=== PATIENT | male | born 1955 | race Caucasian/White ===

== ENCOUNTER → 2019-01-01 | Outpatient (CLI) | payer BC ==
[2019-01-01 13:14] LABS: Partial Thromboplastin Time 24.9 sec (22.0-30.0); Prothrombin Time 10.5 sec (9.0-12.0)
[2019-01-01 13:18] LABS: HCT 45.6 % (39.0-53.0); HGB 14.9 gm/dL (13.0-17.5); MCH 29.6 pg (25.0-35.0); MCHC 32.6 g/dL (31.0-37.0); MCV 90.9 fL (80.0-100.0); Mean Platelet Volume 7.5; Platelet Count 195 k/uL (150-450); RBC 5.02 m/uL (4.30-5.90); RDW 14.4 % (11.5-15.5); WBC 7.8 k/uL (3.8-10.6)
[2019-01-01 18:27] LABS: Albumin 4.5 g/dL (3.80-4.90); Albumin/Globulin Ratio 2.14 (1.60-3.17); Anion Gap 4.5 mmol/L (4.00-12.00); Calcium 9.5 mg/dL (8.7-10.3); Carbon Dioxide 27.5 mmol/L (21.6-31.8); Globulin 2.1 g/dL (1.6-3.3); Potassium 4.2 mmol/L (3.5-5.5); Total Bilirubin 0.6 mg/dL (0.3-1.2); Total Protein 6.6 g/dL (6.2-8.2)
== END | disposition home or self-care (01) ==
LOC: LABWHC1 11:57
PROVIDERS: ATTEND Family Medicine
DX: Z01.812 Encounter for preprocedural laboratory examination (principal); N28.89 Other specified disorders of kidney and ureter
CPT/HCPCS: 36415; 80053; 85027; 85610; 85730

== ENCOUNTER → 2020-01-02 | Outpatient (CLI) | payer MEDICARE ==
--- NOTE | 2020-01-03 08:00 | MR ---
EXAMINATION TYPE: MR brain wo/w con DATE OF EXAM: 01/02/2020 COMPARISON: None HISTORY: Renal Cell Carcinoma CONTRAST: Performed utilizing 8.5 mL intravenous Gadavist gadolinium contrast. TECHNIQUE: Multiplanar, multiecho imaging on a 3.0 Chanelle magnet is performed through the brain. Stud y is performed within 24 hours of arrival to the hospital. The craniovertebral junction is normal. The pituitary is normal. Diffusion-weighted imaging is performed. No abnormal hyperintensity is present to suggest an acute i ntracranial infarct or acute ischemic change. There are couple of subcortical white matter changes within the frontal lobes and left cortex, not ou t of portion patient age. Findings are nonspecific. Migraine headaches, microvascular ischemic change , vasculitis are among the differential . Ventricles and sulci are appropriate for the patient age. No abnormal enhancement is evident. No suspicious masses or enhancing lesions are identified. IMPRESSIONS: 1. Few scattered nonspecific white matter changes. 2. No suspicious changes to suggest metastatic disease.
== END | disposition home or self-care (01) ==
LOC: RADMRIMAIN 15:01
PROVIDERS: ATTEND Internal Medicine Hematology & Oncology
DX: C64.1 Malignant neoplasm of right kidney, except renal pelvis (principal); R90.82 White matter disease, unspecified
CPT/HCPCS: 70553; A9585

== ENCOUNTER → 2020-03-31 | Outpatient (CLI) | payer MEDICARE ==
--- NOTE | 2020-04-01 11:49 | MR ---
EXAMINATION TYPE: MR abdomen wo/w con DATE OF EXAM: 03/31/2020 COMPARISON: None. HISTORY: Renal cell ca status post right nephrectomy. CONTRAST: Standard multiplanar, multisequence MRI departmental protocol utilizing 8.5 mL intravenous Gadavist g adolinium contrast. Imaging is performed of the abdomen focusing on the kidneys. FINDINGS: Kidneys: Right kidney noted surgically absent. There is small bowel loop filling the right nephrectom y bed. No suspicious recurrent soft tissue noted. Left kidney is normal in size. There is no concerni ng solid or cystic mass identified. No left-sided hydronephrosis is seen. Prominent left-sided retro peritoneal fat with mass effect in the left mid to lower abdomen is noted displacing bowel loops. Other: Lung bases are grossly clear. Liver shows occasional tiny subcentimeter thin-walled cysts thro ughout the left hepatic lobe and inferior right hepatic lobe. Patent nondilated portal vein. Suspicio us solid mass. Gallbladder is contracted. No biliary dilatation. The spleen and pancreas are unremark able. Both adrenal glands are present and felt within normal limits. There is no suspicious small or large bowel dilatation. No AAA is seen. No abdominal ascites. No suspicious greater than 1 cm abdomin al adenopathy. Visualized osseous structures are intact. IMPRESSION: No suspicious new mass or adenopathy to suggest neoplastic recurrence. If Outside MRI and/or report become available an addendum may be issued.
== END | disposition home or self-care (01) ==
LOC: RADMRIMAIN 08:54
PROVIDERS: ATTEND Internal Medicine Hematology & Oncology
DX: C64.1 Malignant neoplasm of right kidney, except renal pelvis (principal)
CPT/HCPCS: 74183; A9585

== ENCOUNTER → 2020-04-01 | Outpatient (CLI) | payer MEDICARE ==
--- NOTE | 2020-04-02 17:17 | MR ---
EXAM: MAGNETIC RESONANCE IMAGING OF THE PELVIS WITH AND WITHOUT IV CONTRAST CLINICAL HISTORY: CANCER C64.1. Renal cell carcinoma status post right nephrectomy. COMPARISON: None. Correlative study includes MRI abdomen 03/31/2020 TECHNIQUE: Multi sequential multiplanar MRI images of the pelvis obtained without and with administr ation of 8.5 mL of intravenous Gadavist contrast. FINDINGS: There is motion artifact of the mid anterior visualized abdomen, without discrete visualization of kn own peritoneal nodularity in the region. No peritoneal nodularity, mass, free fluid, or lymphadenopat hy is seen within the pelvis. The urinary bladder is normal. Mild prostamegaly. The visualized bowel is nonobstructed with colonic diverticulosis. There is diffusely heterogenous bone marrow. IMPRESSIONS 1. No evidence of metastatic renal cell carcinoma of the pelvis. 2. Diffusely heterogenous bone marrow is nonspecific.
== END | disposition home or self-care (01) ==
LOC: RADMRIMAIN 09:00
PROVIDERS: ATTEND Internal Medicine Hematology & Oncology
DX: C64.1 Malignant neoplasm of right kidney, except renal pelvis (principal)
CPT/HCPCS: 72197; A9585

== ENCOUNTER → 2020-06-24 | Outpatient (CLI) | payer MEDICARE ==
--- NOTE | 2020-06-24 15:46 | MR ---
EXAMINATION TYPE: MR abdomen wo/w con DATE OF EXAM: 06/24/2020 COMPARISON: 03/31/2020 HISTORY: Renal cell CONTRAST: Standard multiplanar, multisequence MRI departmental protocol utilizing 8.5 ml mL intravenous Gadavis t gadolinium contrast. FINDINGS: Previously noted local recurrence with mass posterior to the right adrenal gland which measured 3 x 2 cm on an outside study from [facility] and subsequently measured 8 x 6 mm on 03/31/2020 i s not visualized on today's examination. No new masses are seen at this time. There are changes of th e right-sided nephrectomy with renal fossa appearing unremarkable. The left kidney excretes contrast normally. There is no evidence for left renal mass or hydronephrosi s. No nephrolithiasis seen. No evidence for regional adenopathy. Adrenal glands are symmetric and unremarkable. No hepatic lesions are seen. Gallbladder is unremarkable. Pancreas and spleen are within normal limit s. IMPRESSION: No evidence for recurrent or residual mass adjacent to or arising from the right renal fossa.
== END | disposition home or self-care (01) ==
LOC: RADMRIMAIN 12:36
PROVIDERS: ATTEND Internal Medicine Hematology & Oncology
DX: C64.1 Malignant neoplasm of right kidney, except renal pelvis (principal)
CPT/HCPCS: 74183; A9585

== ENCOUNTER → 2020-06-25 | Outpatient (CLI) | payer MEDICARE ==
--- NOTE | 2020-06-25 07:51 | CT ---
EXAMINATION TYPE: CT chest wo con DATE OF EXAM: 06/25/2020 COMPARISON: CT chest 02/26/2010. HISTORY: Renal cell cancer. CT DLP: 332.4 mGycm. Automated Exposure Control for Dose Reduction was Utilized. TECHNIQUE: CT scan of the thorax is performed without IV contrast. FINDINGS: LUNGS: There is peripheral 6 x 4 mm right lower lobe 42 new from 2010 study. No additional new greate r than 4 mm nodules or masses identified. Mild Linear scarring lateral lung bases unchanged from prio r. No pleural effusion or pneumothorax. MEDIASTINUM: Lack of IV contrast is noted to limit evaluation for mediastinal and especially hilar ad enopathy. There are no definitive greater than 1 cm hilar or mediastinal lymph nodes. No cardiomega ly or pericardial effusion is seen. Ascending aorta measures up to 3.7 cm in diameter axial image 26. Mild to moderate coronary artery calcification is redemonstrated. OTHER: There is partial visualization of right-sided nephrectomy changes.. IMPRESSION: Nonspecific 6 x 4 mm right lower lobe peripheral nodule from 2010 study needs to be follo wed.
== END | disposition home or self-care (01) ==
LOC: RADCTMAIN 07:15
PROVIDERS: ATTEND Internal Medicine Hematology & Oncology
DX: R91.1 Solitary pulmonary nodule (principal); C64.1 Malignant neoplasm of right kidney, except renal pelvis
CPT/HCPCS: 71250

== ENCOUNTER → 2020-06-27 | Outpatient (CLI) | payer MEDICARE ==
--- NOTE | 2020-06-27 19:21 | MR ---
EXAMINATION TYPE: MR brain wo/w con DATE OF EXAM: 06/27/2020 COMPARISON: MRI brain January 02, 2020. HISTORY: Stage 4 renal cell carcinoma TECHNIQUE: Multiplanar, multisequence images of the brain and brainstem is performed without and with IV contras t, utilizing 7.5 mL intravenous Gadavist . FINDINGS: Diffusion weighted images demonstrate no evidence of a recent infarct or other diffusion ab normality. There is no worrisome extra-axial fluid collection. The ventricular system and cisternal spaces are normal in size and appearance. The brain volume is age appropriate. Few small scattered foci of T2 hyperintensity throughout the white matter bilaterally. Roughly 5-10 scattered lesions. Le sions nonspecific in appearance and distribution. Midline structures demonstrates somewhat empty sella morphology. The craniocervical junction appears within normal limits. Post contrast images demonstrate no abnormal enhancement. The dural venous si nuses appear patent. The visualized sinuses are clear and the globes are intact. IMPRESSION: Mild nonspecific white matter changes presumed on the basis of product of chronic small v essel ischemic change in patient of this age. No enhancing lesions are evident to suggest metastatic disease to the brain. No significant change from prior.
== END | disposition home or self-care (01) ==
LOC: RADMRIMAIN 16:53
PROVIDERS: ATTEND Internal Medicine Hematology & Oncology
DX: C64.1 Malignant neoplasm of right kidney, except renal pelvis (principal); R90.89 Other abnormal findings on diagnostic imaging of central nervous system
CPT/HCPCS: 70553; A9585

== ENCOUNTER → 2021-01-26 | Outpatient (CLI) | payer MEDICARE, BC ==
--- NOTE | 2021-01-26 13:42 | CT ---
EXAMINATION TYPE: CT chest wo con DATE OF EXAM: 01/26/2021 COMPARISON: 06/25/2020 HISTORY: 65-year-old male C64.11, renal cell carcinoma, Malignant neoplasm right kidney, stage IV TECHNIQUE: Contiguous axial scanning of the chest without IV contrast. Coronal and sagittal reconstru ctions performed. CT DLP: 565 mGycm Automated exposure control for dose reduction was used. FINDINGS: Heart normal size without pericardial effusion. Mild LAD coronary artery calcifications are present. Ascending aorta ectatic and 3.7 cm. Ectatic upper descending thoracic aorta at 3.5 cm. Conventional a [facility] vessel branching anatomy. 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 No thoracic lymphadenopathy by CT size criteria. Minimal biapical pleural parenchymal scarring. Minimal scattered strandy areas of atelectasis. No con solidation or pleural effusion. 6 mm peripheral right lower lobe pulmonary nodule, axial image 39 is unchanged for 7 months. An addit ional one-year follow-up can be performed. Visualized upper abdomen shows right nephrectomy changes with some of the duodenum extending into the nephrectomy bed. Mild anterior endplate spondylosis. No osseous structure process seen. IMPRESSION: THE 6 MM RIGHT LOWER LOBE PULMONARY NODULE IS STABLE FOR 7 MONTHS. AN ADDITIONAL ONE-YEAR FOLLOW-UP C AN BE PERFORMED. PARTIALLY VISUALIZED POST SURGICAL CHANGE OF PRIOR RIGHT NEPHRECTOMY.
== END | disposition home or self-care (01) ==
LOC: RADCTMAIN 09:30
PROVIDERS: ATTEND Internal Medicine Hematology & Oncology
DX: C64.1 Malignant neoplasm of right kidney, except renal pelvis (principal); Z90.5 Acquired absence of kidney; R91.1 Solitary pulmonary nodule
CPT/HCPCS: 71250

== ENCOUNTER → 2021-01-27 | Outpatient (CLI) | payer MEDICARE, BC ==
--- NOTE | 2021-01-28 01:33 | MR ---
EXAMINATION TYPE: MR abdomen wo/w con DATE OF EXAM: 01/27/2021 COMPARISON: 06/24/2020 HISTORY: renal cell CA hx, Right kidney removed. CONTRAST: Standard multiplanar, multisequence MRI departmental protocol utilizing 10 mL intravenous Gadavist ga dolinium contrast. There is right nephrectomy. Left kidney has normal size and contour with no hydronephrosis. There is no sign of adrenal mass. Liver shows no focal defect. The bile ducts are not dilated. Spleen is intac t. Stomach is intact. There is no sign of pancreatic mass. Pancreatic duct appears normal. There is n o ascites. I see no evidence of retroperitoneal adenopathy. There is no sign of a bowel obstruction. There is 5 mm cyst in the left lobe of the liver. There is no sign of pleural effusion. Contrast imag es show normal enhancement of the portal venous system. There is normal enhancement of the left renal vein and inferior vena cava. There is no pathologic enhancement. IMPRESSION: Right nephrectomy. No evidence of recurrent tumor. No significant change compared to old exam. No sig n of metastatic disease.
== END | disposition home or self-care (01) ==
LOC: RADMRIMAIN 11:33
PROVIDERS: ATTEND Internal Medicine Hematology & Oncology
DX: Z85.118 Personal history of other malignant neoplasm of bronchus and lung (principal); K76.89 Other specified diseases of liver
CPT/HCPCS: 74183; A9585

== ENCOUNTER → 2021-04-24 | Outpatient (CLI) | payer MEDICARE, BC ==
--- NOTE | 2021-04-24 09:35 | CT ---
EXAMINATION TYPE: CT chest wo con DATE OF EXAM: 04/24/2021 COMPARISON: CT chest January 26, 2021 and older studies HISTORY: Renal cell CA, observe for METS, prior abnormal CT CT DLP: 480.0 mGycm. Automated Exposure Control for Dose Reduction was Utilized. TECHNIQUE: CT scan of the thorax is performed without IV contrast. FINDINGS: LUNGS: There is stable peripheral 5 x 4 mm right lower lobe nodule axial image 43 current study from last 2 prior studies. No additional new greater than 4 mm nodules or masses identified. Mild bibasila r linear scarring and/or atelectasis unchanged from prior. No pleural effusion or pneumothorax seen b ilaterally. MEDIASTINUM: Lack of IV contrast is noted to limit evaluation for mediastinal and especially hilar ad enopathy. There are no definitive greater than 1 cm new mediastinal lymph nodes. No cardiomegaly or pericardial effusion is seen. Ascending aorta measures up to 3.8 cm in diameter current study axial image 29. Mild to moderate coronary artery calcification is redemonstrated. OTHER: Right-sided nephrectomy changes redemonstrated. Small degree of subareolar gynecomastia redemo nstrated. Slight scoliotic curvature with mild multilevel spurring redemonstrated. IMPRESSION: Stable small right lower lobe nodule presumed benign. No new or enlarging nodules identif ied to suggest metastatic disease to the lungs.
== END | disposition home or self-care (01) ==
LOC: RADCTMAIN 08:55
PROVIDERS: ATTEND Internal Medicine Hematology & Oncology
DX: C64.9 Malignant neoplasm of unspecified kidney, except renal pelvis (principal); R91.1 Solitary pulmonary nodule
CPT/HCPCS: 71250

== ENCOUNTER → 2021-04-24 | Outpatient (CLI) | payer MEDICARE, BC ==
--- NOTE | 2021-04-27 07:48 | MR ---
EXAMINATION TYPE: MR abdomen wo/w con DATE OF EXAM: 04/24/2021 COMPARISON: MRI abdomen January 27, 2021 and older studies. HISTORY: Known renal cell carcinoma. Follow up study. CONTRAST: Standard multiplanar, multisequence MRI departmental protocol images were obtained without contrast a nd with 9 mL intravenous Gadavist gadolinium contrast. Imaging performed of the abdomen focusing on the kidneys. FINDINGS: Kidneys: Right kidney is surgically absent. Stable small 8 x 6 mm nodular focus of enhancement appear s contiguous with the right adrenal gland along inferior anterior aspect Left kidney is within normal limits in size without concerning solid or cystic mass. Incidental subcentimeter benign thin-walled cysts centrally coronal image 19. Prominent left-sided retroperitoneal fat redemonstrated. Other: Lung bases remain grossly clear. Stable 5 mm benign-appearing thin-walled cyst left hepatic lo be. Gallbladder is contracted. No biliary dilatation. Spleen and both adrenal glands remain within no rmal limits. No suspicious small or large bowel dilatation. No intra-abdominal ascites. No greater t deluna 1 cm intra-abdominal adenopathy. Osseous structures are intact. Overlying anterior abdominal wall samantha tical scarring with small incisional hernia series 1601 image 9 noted. No new intraperitoneal deposits identified. IMPRESSION: No suspicious new masses identified to suggest recurrent metastatic neoplasm.
== END | disposition home or self-care (01) ==
LOC: RADMRIMAIN 12:36
PROVIDERS: ATTEND Internal Medicine Hematology & Oncology
DX: C64.9 Malignant neoplasm of unspecified kidney, except renal pelvis (principal)
CPT/HCPCS: 74183; A9585

== ENCOUNTER 2021-11-30 13:08 | Emergency (ER) | payer MEDICARE, BC ==
[2021-11-30 13:18] VITALS: RESP 18; TEMP 98.2
--- NOTE | 2021-11-30 13:49 | ED ---
General Adult HPI - General Chief complaint: Extremity Injury, Lower Stated complaint: Leg pain Time Seen by Provider: 11/30/21 13:30 Source: patient, RN notes reviewed, old records reviewed Mode of arrival: ambulatory Limitations: no limitations - History of Present Illness Initial comments: This is a 66-year-old male presents emergency department stating that he just drove back from [place] and got back today. Patient states he was in the car for 12 hours first canine a second and 6 today. Patient states yesterday started noticing some pain behind the knee And distal thigh. Patient states the calf is nontender and the leg is swollen. Patient denies any difficulty breathing or shortness of breath per patient denies any fever chills or cough per patient denies any chest pain. Patient denies any lightheadedness or dizziness. Patient's only complaint is the pain posteriorly or in the leg and hand swelling of the calf - Related Data Home Medications Medication Instructions Recorded Confirmed Levocetirizine Dihydrochloride 5 mg PO HS 11/30/21 11/30/21 [Xyzal] Losartan/Hydrochlorothiazide 1 tab PO DAILY 11/30/21 11/30/21 [Losartan-Hctz 100-12.5 mg Tab] Omeprazole 20 mg PO BID 11/30/21 11/30/21 Simvastatin 40 mg PO DAILY 11/30/21 11/30/21 Zolpidem Tartrate [Ambien Cr] 12.5 mg PO HS 11/30/21 11/30/21 Previous Rx's Medication Instructions Recorded Apixaban [Eliquis Starter Pack 5 - 10 mg PO DIRECTED 30 Days 11/30/21 (for VTE)] #1 each Allergies Allergy/AdvReac Type Severity Reaction Status Date / Time No Known Allergies Allergy Verified 11/30/21 14:33 Review of Systems ROS Statement: Those systems with pertinent positive or pertinent negative responses have been documented in the HPI. ROS Other: All systems not noted in ROS Statement are negative. Past Medical History Additional Past Medical History / Comment(s): right kidney removed History of Any Multi-Drug Resistant Organisms: None Reported Past Surgical History: No Surgical Hx Reported Past Psychological History: No Psychological Hx Reported Smoking Status: Never smoker Past Alcohol Use History: None Reported Past Drug Use History: None Reported General Exam - General Exam Comments Initial Comments: GENERAL: Patient is well-developed and well-nourished. Patient is nontoxic and well- hydrated and is in no acute distress. ENT: Neck has full range of motion without eliciting any pain. EYES: The sclera were anicteric and conjunctiva were pink and moist. Extraocular movements were intact and pupils were equal round and reactive to light. Eyelids were unremarkable. PULMONARY: Unlabored respirations. Good breath sounds bilaterally. No audible rales rhonchi or wheezing was noted. CARDIOVASCULAR: There is a regular rate and rhythm without any murmurs gallops or rubs. ABDOMEN: Soft and nontender with normal bowel sounds. SKIN: Skin is clear with no lesions or rashes and otherwise unremarkable. NEUROLOGIC: Patient is alert and oriented x3. Cranial nerves II through XII are grossly intact. Motor and sensory are also intact. Normal speech, volume and content. Symmetrical smile. MUSCULOSKELETAL: Normal extremities with adequate strength and full range of motion. Tender to palpation on the left leg is mildly swollen. LYMPHATICS: No significant lymphadenopathy is noted PSYCHIATRIC: Normal psychiatric evaluation. Limitations: no limitations Course Vital Signs 11/30/21 13:15 Temperature 98.2 F Pulse Rate 81 Respiratory 18 Rate Blood Pressure 143/89 O2 Sat by Pulse 98 Oximetry Medical Decision Making - Medical Decision Making Patient has a ultrasound of the left leg positive for DVT. Patient will be placed on eliquis. Disposition Clinical Impression: DVT (deep venous thrombosis) Disposition: HOME SELF-CARE Condition: Good Instructions (If sedation given, give patient instructions): Deep Vein Thrombosis (ED) Prescriptions: Apixaban [Eliquis Starter Pack (for VTE)] 5 - 10 mg PO DIRECTED 30 Days #1 each Is patient prescribed a controlled substance at d/c from ED?: No Referrals: Lj Smith MD [Primary Care Provider] - 1-2 days Time of Disposition: 14:55
--- NOTE | 2021-11-30 14:37 | US ---
EXAMINATION TYPE: US venous doppler duplex LE LT DATE OF EXAM: 11/30/2021 2:30 PM COMPARISON: NONE CLINICAL HISTORY: DVT. pain and edema left leg SIDE PERFORMED: left TECHNIQUE: The lower extremity deep venous system is examined utilizing real time linear array sonog tristan with graded compression, doppler sonography and color-flow sonography. VESSELS IMAGED: Common Femoral Vein Deep Femoral Vein Greater Saphenous Vein * Femoral Vein Popliteal Vein Small Saphenous Vein * Proximal Calf Veins (* superficial vessels) Left Leg: positive for DVT left femoral vein distal, left popliteal vein extending into proximal c mcc vein IMPRESSION: 1. Exam is positive for acute DVT left superficial femoral vein, left popliteal vein and extending in to the proximal calf veins.
[2021-11-30 15:15] VITALS: BP 134/78; PULSE 84
== END 2021-11-30 15:15 | disposition home or self-care (01) ==
LOC: EC 13:08
DX: I82.412 Acute embolism and thrombosis of left femoral vein (principal)
CPT/HCPCS: 99283

== ENCOUNTER → 2022-03-03 | Outpatient (CLI) | payer MEDICARE, BC ==
--- NOTE | 2022-03-03 16:02 | CT ---
EXAMINATION TYPE: CT chest wo con DATE OF EXAM: 03/03/2022 COMPARISON: 04/24/2021, 06/25/2020 HISTORY: H/O RENAL CA CT DLP: 533 mGycm, Automated exposure control for dose reduction was used. CONTRAST: None TECHNIQUE: Axial images were obtained at 5 mm thick sections. Reconstructed images are reviewed on [employer] computer in the coronal plane. FINDINGS: Portion of the thyroid visualized is normal. The 0.4 cm nodule in the periphery of the right lower lung field, series 4 image 45 remain stable. No enlarged mediastinal or hilar adenopathy is evident. The ascending aorta diameter at the level o f the main pulmonary artery is 4.1 cm. The main pulmonary artery diameter at the bifurcation is 2.4 cm. Minimal coronary artery calcifications present. Limited CT sections are obtained through the upper abdomen. There is a right nephrectomy. IMPRESSIONS: 1. No significant interval change. Stable subcentimeter nodule right lobe. Follow-up in 6 months is r ecommended to confirm stability over the course of 2 years.
--- NOTE | 2022-03-03 16:57 | MR ---
MR abdomen with and without contrast HISTORY: Renal cancer, C 64.1 Multiplanar multisequence and postcontrast images obtained to the abdomen following 9 cc Gadavist IV Correlation to prior MR abdomen 04/24/2021 Exam is stable. Scattered T2 bright foci within the liver are likely to represent cysts. No retroperi toneal adenopathy. Aorta shows normal caliber. Adrenal glands are stable. Umbilical hernia contains f at. There is no ascites. Patient is status post right nephrectomy. Left kidney shows a stable appearance. No abnormal enhancem ent. Pancreas is unchanged. Spleen is normal. Gallbladder shows no stone. No evident bowel obstructio n. Lung bases show no effusion. Visualized bone marrow signal is normal IMPRESSION: No evident recurrence.
== END | disposition home or self-care (01) ==
LOC: RADCTMAIN 11:17
PROVIDERS: ATTEND Internal Medicine Hematology & Oncology
DX: C64.1 Malignant neoplasm of right kidney, except renal pelvis (principal); R91.8 Other nonspecific abnormal finding of lung field
CPT/HCPCS: 71250; 74183; A9585

== ENCOUNTER → 2022-05-15 | Outpatient (CLI) | payer MEDICARE, BC ==
--- NOTE | 2022-05-16 15:09 | MR ---
EXAMINATION TYPE: MR shoulder LT wo con DATE OF EXAM: 05/15/2022 COMPARISON: None HISTORY: Left shoulder pain and limited range of motion TECHNIQUE: Multiplanar, multisequence imaging of the left shoulder is performed without contrast. FINDINGS: Rotator Cuff: There is some increased signal associated with the rotator cuff tendon, Acromioclavicular Joint: There is degenerative change at the acromioclavicular joint. Distal acromial spur is present. Glenohumeral Joint: Intact Labrum: The labrum appears grossly intact given limitation of non-arthrogram study. Biceps Tendon: The long head of biceps is in normal location within bicipital groove. Fluid is presen t along the long head of biceps tendon. Findings could be indicative of tenosynovitis. Bone marrow signal: Some small pseudocysts are present within the humeral head. Other: There is some fluid signal along the subscapularis musculotendinous junction. IMPRESSION: Findings may represent an intrasubstance tear of the supraspinatus tendon correlate for impingement. Acromioclavicular joint arthropathy.
== END | disposition home or self-care (01) ==
LOC: RADMRIMAIN 07:11
PROVIDERS: ATTEND Family Medicine
DX: M19.012 Primary osteoarthritis, left shoulder (principal)

== ENCOUNTER → 2022-12-08 | Outpatient (CLI) | payer MEDICARE, BC ==
--- NOTE | 2022-12-08 17:55 | CT ---
EXAMINATION TYPE: CT chest wo con DATE OF EXAM: 12/08/2022 COMPARISON: 03/03/2022 HISTORY: renal cell cancer CT DLP: 346.5 mGycm, Automated exposure control for dose reduction was used. CONTRAST: Performed injected with 0 mL of Isovue 300. TECHNIQUE: Axial images were obtained at 5 mm thick sections. Reconstructed images are reviewed on [employer] computer in the coronal plane. FINDINGS: Portion of the thyroid visualized is normal. No suspicious lung nodules or focal infiltrates are present. No enlarged mediastinal or hilar adenopathy is evident. The ascending aorta diameter at the level o f the main pulmonary artery is 3.9 cm. The main pulmonary artery diameter at the bifurcation is 2.3 cm. Mild coronary artery calcifications present. Limited CT sections are obtained through the upper abdomen. Small hiatal hernia may be present. Upper abdomen within the [id number] otherwise appears unremarkable. IMPRESSIONS: 1. No suspicious changes to suggest metastatic neoplasm.
== END | disposition home or self-care (01) ==
LOC: RADCTMAIN 12:52
PROVIDERS: ATTEND Internal Medicine Hematology & Oncology
DX: C64.1 Malignant neoplasm of right kidney, except renal pelvis (principal)
CPT/HCPCS: 71250

== ENCOUNTER → 2022-12-08 | Outpatient (CLI) | payer MEDICARE, BC ==
--- NOTE | 2022-12-10 10:55 | MR ---
EXAMINATION TYPE: MR abdomen wo/w con DATE OF EXAM: 12/08/2022 2:49 PM INDICATION: Patient age:Male; 67 years old; Reason for study: C64.1 Renal cell cancer. F/U renal cell cancer COMPARISON: MR abdomen most recent 03/03/2022 TECHNIQUE: Multiplanar multi-sequence imaging was performed without contrast. Post contrast imaging was performed. Post IV contrast subtraction images were also submitted for review. IV Contrast: 9 cc Gadavist FINDINGS: LOWER CHEST: No gross irregularity. ABDOMEN Liver: Signal dropout on in phase chemical shift imaging. Gallbladder and Bile ducts: Unremarkable. Pancreas: Unremarkable. Spleen: Signal dropout on in phase chemical shift imaging. Adrenal glands: Unremarkable. Kidneys: Surgically absent right kidney. There is no abnormal soft tissue in the surgical bed. The left kidney is without evidence of hydronephrosis or suspicious mass. Stomach and Bowel: Unremarkable as visualized. Peritoneum: No evidence of pneumoperitoneum or free fluid. Vasculature: Unremarkable. No aortic aneurysm. Musculoskeletal: The osseous structures appear intact. Lymph Nodes: No gross evidence for lymphadenopathy. Abdominal wall: Unremarkable. IMPRESSION: 1. No evidence of mass or lymphadenopathy to suggest recurrence. 2. Evidence of iron deposition within the liver and spleen.
== END | disposition home or self-care (01) ==
LOC: RADMRIMAIN 12:49
PROVIDERS: ATTEND Internal Medicine Hematology & Oncology
DX: C64.1 Malignant neoplasm of right kidney, except renal pelvis (principal)
CPT/HCPCS: 74183; A9585

== ENCOUNTER 2023-01-15 08:53 | Emergency (ER) | payer MEDICARE, BC ==
[2023-01-15 09:00] VITALS: RESP 16; TEMP 98.4
[2023-01-15] MEDS ORDERED: SODIUM CHLORIDE 0.9% 500 ML 500 ML IV STA (09:17)
[2023-01-15] MEDS ORDERED: KETOROLAC 15 MG/ML 1 ML VIAL IVP STA (09:17)
--- NOTE | 2023-01-15 09:21 | ED ---
General Adult HPI - General Chief complaint: Abdominal Pain Stated complaint: R side pain Time Seen by Provider: 01/15/23 09:00 Source: patient, RN notes reviewed, old records reviewed Mode of arrival: ambulatory Limitations: no limitations - History of Present Illness Initial comments: This is a 67-year-old male who presents emergency Department complaining of right mid abdominal pain 5 days. Patient states it was worse on about a 5 out of 10 states about a 3 out of 10. Patient states he also has some back pain on the lower back and that probably started first per patient denies any vomiting or diarrhea patient denies any fever chills patient denies any chest pain difficulty breathing shortness of breath. Patient states he's been able to eat and drink normally for the last 5 days. Patient states she does have a history of renal cell carcinoma which he had his kidney removed. Patient states that the CAT scan about a month ago and everything was normal at that time. Patient denies any dysuria hematuria urinary frequency. - Related Data Home Medications Medication Instructions Recorded Confirmed Levocetirizine Dihydrochloride 5 mg PO HS 11/30/21 11/30/21 [Xyzal] Losartan/Hydrochlorothiazide 1 tab PO DAILY 11/30/21 11/30/21 [Losartan-Hctz 100-12.5 mg Tab] Omeprazole 20 mg PO BID 11/30/21 11/30/21 Simvastatin 40 mg PO DAILY 11/30/21 11/30/21 Zolpidem Tartrate [Ambien Cr] 12.5 mg PO HS 11/30/21 11/30/21 Previous Rx's Medication Instructions Recorded Apixaban [Eliquis Starter Pack 5 - 10 mg PO DIRECTED 30 Days 11/30/21 (for VTE)] #1 each Allergies Allergy/AdvReac Type Severity Reaction Status Date / Time No Known Allergies Allergy Verified 01/15/23 08:58 Review of Systems ROS Statement: Those systems with pertinent positive or pertinent negative responses have been documented in the HPI. ROS Other: All systems not noted in ROS Statement are negative. Past Medical History Additional Past Medical History / Comment(s): right kidney removed History of Any Multi-Drug Resistant Organisms: None Reported Past Surgical History: No Surgical Hx Reported Past Psychological History: No Psychological Hx Reported Smoking Status: Never smoker Past Alcohol Use History: None Reported Past Drug Use History: None Reported General Exam - General Exam Comments Initial Comments: GENERAL: Patient is well-developed and well-nourished. Patient is nontoxic and well-hydrated and is in mild distress. ENT: Neck is soft and supple. No significant lymphadenopathy is noted. Oropharynx is clear. Moist mucous membranes. Neck has full range of motion without eliciting any pain. EYES: The sclera were anicteric and conjunctiva were pink and moist. Extraocular movements were intact and pupils were equal round and reactive to light. Eyelids were unremarkable. PULMONARY: Unlabored respirations. Good breath sounds bilaterally. No audible rales rhonchi or wheezing was noted. CARDIOVASCULAR: There is a regular rate and rhythm without any murmurs gallops or rubs. ABDOMEN: Soft and nontender with normal bowel sounds. SKIN: Skin is clear with no lesions or rashes and otherwise unremarkable. NEUROLOGIC: Patient is alert and oriented x3. Cranial nerves II through XII are grossly intact. Motor and sensory are also intact. Normal speech, volume and content. Symmetrical smile. MUSCULOSKELETAL: Normal extremities with adequate strength and full range of motion. LYMPHATICS: No significant lymphadenopathy is noted PSYCHIATRIC: Normal psychiatric evaluation. Limitations: no limitations Course Vital Signs 01/15/23 01/15/23 08:58 09:17 Temperature 98.4 F Pulse Rate 76 78 Respiratory 16 16 Rate Blood Pressure 133/78 133/68 O2 Sat by Pulse 99 98 Oximetry Medical Decision Making - Medical Decision Making EKG was interpreted by myself. EKG shows a sinus rhythm at 67 bpm MS interval 163 QRS is 86 QT interval 394 QTC is 410. Patient's EKG shows no ST segment elevation or depression. Was pt. sent in by a medical professional or institution (, PA, [employer], urgent care, hospital, or intermediate...) When possible be specific @ -No Did you speak to anyone other than the patient for history (EMS, parent, family, police, friend...)? What history was obtained from this source @ -No Did you review nursing and triage notes (agree or disagree)? Why? @ -I reviewed and agree with nursing and triage notes Were old charts reviewed (outside hosp., previous admission, EMS record, old EKG, old radiological studies, urgent care reports/EKG's, intermediate records)? Report findings @ -I reviewed prior lab work and prior radiological studies Differential Diagnosis (chest pain, altered mental status, abdominal pain women, abdominal pain men, vaginal bleeding, weakness, fever, dyspnea, syncope, headache, dizziness, GI bleed, back pain, seizure, CVA, palpatations, mental health, musculoskeletal)? @ -Differential Abdominal Pain Men: Appendicitis, cholecystitis, diverticulosis, ischemic bowel, pancreatitis, hepatitis, UTI, gastroenteritis, AAA, incarcerated hernia, bowel obstruction, constipation, inflammatory bowel, hepatitis, peptic ulcer disease, splenic infarction, perforated viscus, testicular torsion, this is not meant to be an all-inclusive list EKG interpreted by me (3pts min.). @ -As above X-rays interpreted by me (1pt min.). @ -None done CT interpreted by me (1pt min.). @ -None done U/S interpreted by me (1pt. min.). @ -None done What testing was considered but not performed or refused? (CT, X-rays, U/S, labs)? Why? @ -None What meds were considered but not given or refused? Why? @ -None Did you discuss the management of the patient with other professionals (professionals i.e. , PA, [employer], lab, RT, psych nurse, social services assistant, research chemical engineer, teacher, sewage reticulation drafting officer, continuous pillowcase cutter)? Give summary @ -No Was smoking cessation discussed for >3mins.? @ -No Was critical care preformed (if so, how long)? @ -No Were there social determinants of health that impacted care today? How? (Homelessness, low income, unemployed, alcoholism, drug addiction, transportation, low edu. Level, literacy, decrease access to med. care, usp, rehab)? @ -No Was there de-escalation of care discussed even if they declined (Discuss DNR or withdrawal of care, Hospice)? DNR status @ -No What co-morbidities impacted this encounter? (DM, HTN, Smoking, COPD, CAD, Cancer, CVA, ARF, Chemo, Hep., AIDS, mental health diagnosis, sleep apnea, morbid obesity)? @ -None Was patient admitted / discharged? Hospital course, mention meds given and r oute, prescriptions, significant lab abnormalities, going to OR and other pertinent info. @ -Patient had 5 days of abdominal pain no change in eating habits was not nauseous no diarrhea and no fever or chills. On examination he was very minimally tender in the mid lateral abdomen there was no right lower quadrant pain there was no rebound. Lab work showed no acute abnormality I will back and reviewed his abdomen he had very minimal tenderness again no rebound. I discussed getting a possible CAT scan with the patient he stated he just had one month ago which I did review it showed no acute abnormality he did not want one if I didn't think it was necessary at this point time I thought he could follow- up as needed if it got worse she can come back patient was in agreement with this. Undiagnosed new problem with uncertain prognosis? @ -No Drug Therapy requiring intensive monitoring for toxicity (Heparin, Nitro, Insulin, Cardizem)? @ -No Were any procedures done? @ -No Diagnosis/symptom? @ -Abdominal pain Acute, or Chronic, or Acute on Chronic? @ -Acute Uncomplicated (without systemic symptoms) or Complicated (systemic symptoms)? @ -complicated Side effects of treatment? @ -No Exacerbation, Progression, or Severe Exacerbation? @ -No Poses a threat to life or bodily function? How? (Chest pain, [place], [place], pneumonia, PE, COPD, DKA, ARF, appy, cholecystitis, CVA, Diverticulitis, Homicidal, Suicidal, threat to staff... and all critical care pts) @ -No - Lab Data Result diagrams: 01/15/23 09:22 01/15/23 09:22 Lab Results 01/15/23 01/15/23 01/15/23 Range/Units 09:17 09:22 09:22 WBC 7.0 (3.8-10.6) k/uL RBC 4.86 (4.30-5.90) m/uL Hgb 14.9 (13.0-17.5) gm/dL Hct 45.2 (39.0-53.0) % MCV 93.0 (80.0-100.0) fL MCH 30.7 (25.0-35.0) pg MCHC 33.0 (31.0-37.0) g/dL RDW 12.4 (11.5-15.5) % Plt Count 186 (150-450) k/uL MPV 8.0 Neutrophils % 67 % Lymphocytes % 22 % Monocytes % 7 % Eosinophils % 1 % Basophils % 1 % Neutrophils # 4.7 (1.3-7.7) k/uL Lymphocytes # 1.6 (1.0-4.8) k/uL Monocytes # 0.5 (0-1.0) k/uL Eosinophils # 0.1 (0-0.7) k/uL Basophils # 0.0 (0-0.2) k/uL Sodium 139 (137-145) mmol/L Potassium 4.1 (3.5-5.1) mmol/L Chloride 105 (98-107) mmol/L Carbon Dioxide 25 (22-30) mmol/L Anion Gap 9 mmol/L BUN 24 H (9-20) mg/dL Creatinine 1.66 H (0.66-1.25) mg/dL Est GFR (CKD-EPI)AfAm 48 (>60 ml/min/1.73 sqM) Est GFR (CKD-EPI)NonAf 42 (>60 ml/min/1.73 sqM) Glucose 144 H (74-99) mg/dL Calcium 9.3 (8.4-10.2) mg/dL Total Bilirubin 0.8 (0.2-1.3) mg/dL AST 30 (17-59) U/L ALT 25 (4-49) U/L Alkaline Phosphatase 56 (38-126) U/L Total Protein 7.0 (6.3-8.2) g/dL Albumin 4.3 (3.5-5.0) g/dL Amylase 39 (30-110) U/L Lipase 87 (23-300) U/L Urine Color Yellow Urine Appearance Clear (Clear) Urine pH 7.0 (5.0-8.0) Ur Specific [place] 1.012 (1.001-1.035) Urine Protein Negative (Negative) Urine Glucose (UA) Negative (Negative) Urine Ketones Negative (Negative) Urine Blood Negative (Negative) Urine Nitrite Negative (Negative) Urine Bilirubin Negative (Negative) Urine Urobilinogen <2.0 (<2.0) mg/dL Ur Leukocyte Esterase Negative (Negative) Disposition Clinical Impression: Abdominal pain Disposition: HOME SELF-CARE Instructions (If sedation given, give patient instructions): Abdominal Pain (ED) Is patient prescribed a controlled substance at d/c from ED?: No Referrals: Lj Smith MD [Primary Care Provider] - 1-2 days Time of Disposition: 11:05
[2023-01-15 09:25] VITALS: PULSE 78
[2023-01-15 09:43] LABS: Basophils % (A) 1 %; Eosinophils # (A) 0.1 k/uL (0-0.7); Eosinophils % (A) 1 %; HCT 45.2 % (39.0-53.0); HGB 14.9 gm/dL (13.0-17.5); Lymphocytes # (A) 1.6 k/uL (1.0-4.8); Lymphocytes % (A) 22 %; MCH 30.7 pg (25.0-35.0); Monocytes # (A) 0.5 k/uL (0-1.0); Monocytes % (A) 7 %; Neutrophils # (A) 4.7 k/uL (1.3-7.7); Neutrophils % (A) 67 %; Platelet Count 186 k/uL (150-450); RBC 4.86 m/uL (4.30-5.90); RDW 12.4 % (11.5-15.5)
[2023-01-15 09:55] LABS: Appearance,Urine Clear (Clear); Bilirubin,Urine Negative (Negative); Blood,Urine Negative (Negative); Color,Urine Yellow; Glucose,Urine (UA) Negative (Negative); Ketones,Urine Negative (Negative); Leukocyte Esterase,Urine Negative (Negative); Nitrite,Urine Negative (Negative); Protein,Urine Negative (Negative); Specific Gravity,Urine 1.012 (1.001-1.035); Urobilinogen,Urine <2.0 mg/dL (<2.0)
[2023-01-15 09:58] LABS: ALT 25 U/L (4-49); AST 30 U/L (17-59); African American GFR (CKD) 48 (>60 ml/min/1.73 sqM); Albumin 4.3 g/dL (3.5-5.0); Alkaline Phosphatase 56 U/L (38-126); Amylase 39 U/L (30-110); Anion Gap 9 mmol/L; Blood Urea Nitrogen 24 mg/dL (9-20); Calcium 9.3 mg/dL (8.4-10.2); Carbon Dioxide 25 mmol/L (22-30); Chloride 105 mmol/L (98-107); Glucose 144 mg/dL (74-99); Lipase 87 U/L (23-300); Non-African American GFR(CKD) 42 (>60 ml/min/1.73 sqM); Potassium 4.1 mmol/L (3.5-5.1); Sodium 139 mmol/L (137-145); Total Bilirubin 0.8 mg/dL (0.2-1.3)
[2023-01-15 11:32] VITALS: BP 132/94
== END 2023-01-15 11:32 | disposition home or self-care (01) ==
LOC: EC 08:53
DX: R10.9 Unspecified abdominal pain (principal)
CPT/HCPCS: 36415; 93005; 80053; 82150; 83690; 85025; 81003; 99284; 96374; J1885

== ENCOUNTER → 2024-03-06 | Outpatient (CLI) | payer MEDICARE, BC ==
--- NOTE | 2024-03-28 13:23 | MR ---
Site ID [facility] Patient Ramiro Casanova ID [id number] Order # Procedure MR Abdomen wo/w con EXAMINATION TYPE: MR abdomen wo/w con DATE OF EXAM: 03/16/2024 11:37 AM CLINICAL INDICATION: C64.1 Renal Cell CA. COMPARISON: THIS EXAM WAS READ DURING PACS DOWNTIME, NO PRIORS AVAILABLE. TECHNIQUE: Multiplanar multi-sequence imaging was performed without contrast. Post contrast imaging was performed. Post IV contrast subtraction images were also submitted for review. IV Contrast: Gadavist 9 ml. FINDINGS: LOWER CHEST: No gross irregularity. ABDOMEN Liver: No evidence for hepatic steatosis or cirrhosis. Gallbladder and Bile ducts: No evidence for ductal dilation, or biliary stricture or evidence of chol edocholithiasis. The gallbladder is within normal limits. Pancreas: No ductal dilation. No evidence for solid mass. Spleen: Normal for size. Adrenal glands: Indeterminate right adrenal nodule measuring 9 mm. Kidneys: The right kidney is surgically absent. No evidence for obstructive uropathy. No suspicious r enal masses. Stomach and Bowel: No evidence for bowel wall thickening or evidence for obstruction. Retroperitoneum/Peritoneum: No evidence of pneumoperitoneum or free fluid. Vasculature: No aortic aneurysm. Musculoskeletal: The osseous structures appear intact. Lymph Nodes: No gross evidence for lymphadenopathy. Abdominal wall: Unremarkable. IMPRESSION: Surgically absent right kidney. There is an indeterminate nodule in the right adrenal gland otherwise no evidence for recurrence. No priors available to compare.
--- NOTE | 2024-03-31 07:53 | CT ---
EXAMINATION TYPE: CT chest wo con DATE OF EXAM: 03/06/2024 COMPARISON: No comparison images on downtime PACS. Comparison is made with the written report dated HISTORY: Renal cell carcinoma CT DLP: 302.50 mGycm, Automated exposure control for dose reduction was used. CONTRAST: Performed injected with 0 mL of Isovue 300. TECHNIQUE: Axial images were obtained at 5 mm thick sections. Reconstructed images are reviewed on my[employer] computer in the coronal plane. FINDINGS: Portion of the thyroid visualized is normal. No suspicious lung nodules or focal infiltrates are present. No enlarged mediastinal or hilar adenopathy is evident. The ascending aorta diameter at the level of the main pulmonary artery is 3.8 cm. The main pulmonary artery diameter at the bifurcation is 2.5 cm. Some mild coronary artery calcification is noted. Limited CT sections are obtained through the upper abdomen. Abdomen is essentially unremarkable. IMPRESSION: 1. No suspicious changes for metastatic renal cell cancer within the [id number]
== END | disposition home or self-care (01) ==
LOC: RADMRIMAIN 07:41
PROVIDERS: ATTEND Internal Medicine Hematology & Oncology
DX: C64.1 Malignant neoplasm of right kidney, except renal pelvis (principal); Z90.5 Acquired absence of kidney
CPT/HCPCS: 71250; 74183; A9585

== ENCOUNTER → 2024-12-03 | Outpatient (CLI) | payer MEDICARE, BC ==
--- NOTE | 2024-12-03 07:48 | CT ---
EXAMINATION TYPE: CT chest wo con DATE OF EXAM: 12/03/2024 7:18 AM COMPARISON: 03/06/2024 CLINICAL INDICATION: Male, 69 years old with history of C64.1 MALIGNANT NEOPLASM OF RIGHT KIDNEY, EXC EPT R; [facility], kidney ca TECHNIQUE: CT of the chest without IV contrast. Coronal and sagittal reconstructions performed. CT DLP: 371.4 mGycm, Automated exposure control for dose reduction was used. FINDINGS: Heart is upper limits of normal in size without pericardial effusion. LAD and proximal circumflex cor onary artery calcifications are present. 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 Conventional arch was a branching tito wilma. Ectatic upper descending thoracic aorta 3.3 cm. Mildly enlarged caliber main right and left pulmonary arteries up to 2.7 cm suggesting underlying pul monary hypertension. No thoracic lymphadenopathy by CT size criteria. Trace bilateral gynecomastia. Mild diffuse bronchial wall thickening. Hazy dependent atelectasis in the lungs. Minimal biapical ple ural-parenchymal scarring. No consolidation or pleural effusion. There may be some subtle increased s ubpleural reticular change at the lung bases. A few scattered 5 mm smaller pulmonary nodules particularly on the right remain unchanged. No new ton picious pulmonary nodule seen. Tiny hiatal hernia. Visualized upper abdomen shows possible diffuse gastric fold thickening versus ap pearance due to nondistention. Similar mild thickening of the right adrenal gland. Partially visualized postsurgical change of previ ous right nephrectomy. Bones: No osseous destructive process. IMPRESSION: 1. LAD and proximal circumflex coronary artery calcifications. Possible underlying pulmonary arterial hypertension. 2. A few 5 mm and smaller pulmonary nodules remain unchanged favoring a benign etiology. No new suspi cious pulmonary nodules are seen. 3. 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 4. 7 increased subpleural reticular change at the lower lungs. This may be due to interval increase i n areas of atelectasis. Attention on follow-up to exclude developing interstitial fibrosis. 5. Diffuse gastric fold thickening versus nondistention gastric fundus and body. Correlate for any sy mptoms of underlying gastritis. Follow up recommendations for incidental pulmonary nodules, if there are any, are per [employer] or [employer]. https://radiopaedia.org/articles/yauytnonvd-[email or web address]?lang=us [facility], , 12/03/2024 7:46 AM
--- NOTE | 2024-12-03 09:04 | MR ---
EXAMINATION TYPE: MR abdomen wo/w con DATE OF EXAM: 12/03/2024 7:53 AM INDICATION: Patient age:Male; 69 years old; Reason for study: C64.1 MALIGNANT NEOPLASM OF RIGHT KIDNEY, EXCEPT R; [facility]. COMPARISON: MR abdomen 03/28/2024, 12/08/2022, 03/03/2022, 04/24/2021, 01/27/2021, 06/24/2020, 03/31/2020 TECHNIQUE: Multiplanar multi-sequence imaging was performed without and with IV contrast. The patie nt was given 9 ccs of Gadobutrol intravenously and dynamic imaging was performed. Post IV contrast dangelo btraction images were also submitted for review. FINDINGS: LOWER CHEST: No gross irregularity. ABDOMEN Liver: Stable subcentimeter left hepatic lobe cyst. Gallbladder and Bile ducts: Unremarkable. Pancreas: Unremarkable. Spleen: Unremarkable. Adrenal glands: Unremarkable. Kidneys: Surgically absence of the right kidney. There is no abnormal soft tissue in the surgical bed . The left kidney is without evidence of hydronephrosis or suspicious mass. Stomach and Bowel: Unremarkable as visualized. Peritoneum: No evidence of pneumoperitoneum or free fluid. Vasculature: Unremarkable. No aortic aneurysm. Musculoskeletal: The osseous structures appear intact. Lymph Nodes: No evidence for lymphadenopathy. Abdominal wall: Small fat filled umbilical hernia. IMPRESSION: Post right nephrectomy changes without evidence for recurrence or lymphadenopathy. [facility], , 12/03/2024 9:02 AM
== END | disposition home or self-care (01) ==
LOC: RADCTMAIN 06:50
PROVIDERS: ATTEND Internal Medicine Hematology & Oncology
DX: Z03.89 Encounter for observation for other suspected diseases and conditions ruled out (principal); C64.1 Malignant neoplasm of right kidney, except renal pelvis; I25.10 Atherosclerotic heart disease of native coronary artery without angina pectoris; Z90.5 Acquired absence of kidney; R91.8 Other nonspecific abnormal finding of lung field; J98.4 Other disorders of lung
CPT/HCPCS: 71250; 74183; A9585